=== PATIENT | male | born 1965 | race Caucasian/White ===

== ENCOUNTER 2019-07-03 10:46 | Day surgery (SDC) | payer BC ==
[~2019-07-03 10:46] MED LIST: Lactated Ringers 1,000 ML IV SCH; Propofol 200 MG/20 ML SDV ONE; Sodium Chloride 0.9% 10 ML Syringe FLUSH PRN
--- NOTE | 2019-07-03 11:28 | PCM.HPR ---
H & P Addendum review - H & P Addendum Review Date of Original H & P: 06/23/19 Date Reviewed: 07/03/19 Time Reviewed: 11:28 Patient was Examined: No Changes
[2019-07-03] MEDS ORDERED: Propofol 200 MG/20 ML SDV ONE (11:31)
--- NOTE | 2019-07-03 11:50 | PCM.OPNOTE ---
- General Post-Op/Procedure Note Date of Surgery/Procedure: 07/03/19 Operative Procedure(s): Colonoscopy Findings: Normal Pre Op Diagnosis: Screening Post-Op Diagnosis: Same Anesthesia Technique: MAC Primary Surgeon: Pk Hunt Complications: None Condition: Good
[2019-07-03 13:16] VITALS: BP 143/98; PULSE 77
--- NOTE | 2019-07-03 13:55 | OR ---
Date of Procedure: 07/03/2019 PREOPERATIVE DIAGNOSIS: Colon screening. POSTOPERATIVE DIAGNOSIS: Normal colonoscopy. PROCEDURE: Colonoscopy. ANESTHESIA: IV sedation. DESCRIPTION OF PROCEDURE: The patient was brought to the procedure room where he was placed on his left side and IV sedation administered. Digital rectal exam was performed which was normal. Colonoscope was inserted and advanced to the level of the cecum without difficulty. Cecal position was confirmed by identifying the appendiceal lumen and ileocecal valve. Prep was good and surfaces were well visualized. Upon withdrawing the scope, the ascending, transverse, and descending colon were normal in appearance. Sigmoid colon and rectum were normal. Retroflexion was normal. Air was removed and the scope withdrawn. The patient tolerated the procedure well and returned to Recovery in stable condition. Recommend routine colon screening again in 10 years. MICHELLE MCKEON MD /[id number]
== END 2019-07-03 12:35 | disposition home or self-care (01) ==
LOC: LL.SDS 10:46
PROVIDERS: ATTEND Surgery
DX: Z12.11 Encounter for screening for malignant neoplasm of colon (principal); I10 Essential (primary) hypertension; K21.9 Gastro-esophageal reflux disease without esophagitis; Z79.899 Other long term (current) drug therapy
CPT/HCPCS: J2704; J7120

== ENCOUNTER 2020-12-02 14:33 | Emergency (ER) | payer BC, OTHER ==
[2020-12-02] MEDS ORDERED: Diphtheria,Pertussis(Acell),Tetanus Vaccine 0.5 ML Syringe IM ONE (14:39)
[2020-12-02 15:12] VITALS: BP 150/80; PULSE 64
[2020-12-02] MEDS ORDERED: Bacitracin Oint 1 GM U/D Packet TOP ONE (15:19)
--- NOTE | 2020-12-02 15:22 | EDM.PDOC ---
ED HPI GENERAL MEDICAL PROBLEM - General Chief Complaint: Laceration Stated Complaint: laceration Time Seen by Provider: 12/02/20 14:39 Source of Information: Reports: Patient History Limitations: Reports: No Limitations - History of Present Illness INITIAL COMMENTS - FREE TEXT/NARRATIVE: Patient comes emergency department today from work at [employer] where he had an injury to his left fifth finger just prior to arrival. Approximately 1400 hrs. today the patient was at work when he was moving a heavy piece of metal casting material that shifted and fell landing on his left fifth finger. This happened just prior to arrival. He sustained a laceration and crush injury to the left distal fifth finger. He denies any paresthesias. He is unsure when his last tetanus shot was. He only complains of an injury to the left fifth finger. No Covid exposure no Covid symptoms. - Related Data Allergies Allergy/AdvReac Type Severity Reaction Status Date / Time No Known Allergies Allergy Verified 12/02/20 14:40 Home Meds: Home Meds Lisinopril 20 mg PO DAILY 04/16/16 [History] Omeprazole 20 mg PO DAILY 04/16/16 [History] LORazepam 0.5 mg PO TID PRN 07/03/19 [History] Rosuvastatin Calcium 1 tab PO DAILY 07/03/19 [History] Sertraline HCl 25 mg PO ASDIRECTED 07/03/19 [History] Ubidecarenone [COQ-10] 30 mg PO DAILY 12/02/20 [History] Past Medical History HEENT History: Reports: Impaired Vision Other HEENT History: wears glasses Cardiovascular History: Reports: High Cholesterol, Hypertension Gastrointestinal History: Reports: GERD Other Gastrointestinal History: BARRETTS ESOPHAGUS Psychiatric History: Reports: Anxiety, Depression - Infectious Disease History Infectious Disease History: Reports: Chicken Pox - Past Surgical History GI Surgical History: Reports: Colonoscopy, EGD, Hernia Repair/Other Social & Family History - Caffeine Use Caffeine Use: Reports: Coffee, Soda ED ROS GENERAL - Review of Systems Review Of Systems: Comprehensive ROS is negative, except as noted in HPI. ED EXAM, SKIN/RASH Exam: See Below Exam Limited By: No Limitations General Appearance: Alert, WD/WN, No Apparent Distress Respiratory/Chest: No Respiratory Distress Cardiovascular: Normal Peripheral Pulses, Regular Rate, Rhythm Extremities: Other (REst of the left hand is atraumatic. ). No: Normal Inspection (Exam is isolated to the left hand. On the distal lateral aspect of the fifth finger there is a 2 cm distal to proximal laceration that does not extend into the DIP joint. He is able to flex and extend at the DIP PIP and MCP joints appropriately. CMS is intact appropriately. ) Neurological: Alert, Oriented, CN II-XII Intact, Normal Cognition, No Motor/Sensory Deficits Psychiatric: Normal Affect, Normal Mood Skin: Warm, Dry, Intact, Normal Color, No Rash ED SKIN PROCEDURES - Laceration/Wound Repair Left Lateral Digit - 5th (Baby) Appearance: Subcutaneous, Linear, Clean Distal NVT: Neuro & Vascular Intact, No Tendon Injury Anesthetic Type: Digital Local Anesthesia - Lidocaine (Xylocaine): 1% Plain Local Anesthetic Volume: 5cc Skin Prep: Chlorhexidine (Hibiciens), Providone-Iodine (Betadine) Saline Irrigation (cc's): 500 Exploration/Debridement/Repair: Wound Explored, In a Bloodless Field, Explored to Base, No Foreign Material Found Closed with: Sutures Lac/Wound length In cm: 2 Suture Size: 4-0 Suture Type: Nylon Sterile Dressing Applied: Nurse Tetanus Status Addressed: Yes Complications: No Course - Radiology Interpretation Free Text/Narrative:: X-ray of the left hand initially reviewed extemporaneously by myself. No overt bony deformities. Radiological review to follow - Re-Assessments/Exams Free Text/Narrative Re-Assessment/Exam: 12/02/20 15:50 Wound repair per procedure note. Tetanus updated. Departure - Departure Time of Disposition: 15:21 Disposition: Home, Self-Care 01 Clinical Impression: Crushing injury of finger of left hand Finger laceration Qualifiers: Encounter type: initial encounter Finger: little finger Damage to nail status: without damage Foreign body presence: without foreign body Laterality: left Qualified Code(s): S61.217A - Laceration without foreign body of left little finger without damage to nail, initial encounter - Discharge Information *PRESCRIPTION DRUG MONITORING PROGRAM REVIEWED*: Not Applicable *COPY OF PRESCRIPTION DRUG MONITORING REPORT IN PATIENT LASHELL: Not Applicable Instructions: Laceration Care, Adult, [id number], Pain Medicine Instructions, [id number] Referrals: Vanda Balderrama [employer]IST [Primary Care Provider] - Additional Instructions: Tylenol and or Ibuprofen as needed for pain. Ice to the sore area as well. Wash wound twice daily with soap and water. Bacitracin and bandage until healed. Running water over the finger is okay no soaking in water. Watch for signs of infection. Sutures out in 10 days. Return to the ED if new or worsening symptoms Follow up in the clinic in 10 days for sutures out or if any concerns.
== END 2020-12-02 15:25 | disposition home or self-care (01) ==
LOC: LL.ED 14:33
DX: S67.197A Crushing injury of left little finger, initial encounter (principal); S61.217A Laceration without foreign body of left little finger without damage to nail, initial encounter; E78.00 Pure hypercholesterolemia, unspecified; I10 Essential (primary) hypertension; K21.9 Gastro-esophageal reflux disease without esophagitis; Z23 Encounter for immunization; Z79.899 Other long term (current) drug therapy; W20.8XXA Other cause of strike by thrown, projected or falling object, initial encounter; Y92.89 Other specified places as the place of occurrence of the external cause; Y99.0 Civilian activity done for income or pay
CPT/HCPCS: 12001; 73140-F4; 90471; 90715; 99283-25

== ENCOUNTER 2023-02-15 07:47 | Day surgery (SDC) | payer BC ==
[~2023-02-15 07:47] MED LIST changes: -Lactated Ringers 1,000 ML IV SCH; -Sodium Chloride 0.9% 10 ML Syringe FLUSH PRN
[2023-02-15] MEDS ORDERED: Lactated Ringers 1,000 ML IV SCH (08:00)
[2023-02-15] MEDS ORDERED: Sodium Chloride 0.9% 10 ML Syringe FLUSH PRN (08:00)
[2023-02-15] MEDS ORDERED: Lidocaine 2% 5 ML SDV ONE (09:30)
[2023-02-15] MEDS ORDERED: Propofol 200 MG/20 ML SDV ONE (09:54)
[2023-02-15 10:10] VITALS: BP 108/67; PULSE 70
== END 2023-02-15 11:00 | disposition home or self-care (01) ==
LOC: LL.SDS 07:47
PROVIDERS: ATTEND Surgery
DX: K21.00 Gastro-esophageal reflux disease with esophagitis, without bleeding (principal); I10 Essential (primary) hypertension; E78.5 Hyperlipidemia, unspecified; F32.A Depression, unspecified; Z87.19 Personal history of other diseases of the digestive system; Z79.899 Other long term (current) drug therapy
CPT/HCPCS: 00731; J2704; J3490; J7120

== ENCOUNTER 2025-02-23 14:16 | Emergency (ER) | payer BC ==
[2025-02-23] MEDS ORDERED: Sodium Chloride 0.9% 10 ML Syringe FLUSH PRN (14:21)
[2025-02-23 14:30] LABS: BASOPHILS ABSOLUTE AUTO 0.02 K/uL (0.00-0.20); BASOPHILS PERCENT AUTO 0.3 % (0.0-2.0); EOSINOPHILS ABSOLUTE AUTO 0.06 K/uL (0.00-0.50); EOSINOPHILS PERCENT AUTO 0.8 % (0.0-5.0); HEMOGLOBIN 15.7 g/dL (13.1-16.8); IMMATURE GRAN ABSOLUTE AUTO 0.01 10^3/uL (0.00-0.04); IMMATURE GRAN PERCENT AUTO 0.1 % (0.0-0.4); LYMPHOCYTES ABSOLUTE AUTO 1.88 K/uL (0.50-3.50); LYMPHOCYTES PERCENT AUTO 25.6 % (10.0-50.0); MEAN CORPUSCULAR HEMOGLOBIN 33.3 pg (28.2-33.3); MEAN CORPUSCULAR HGB CONC 37.4 g/dL (31.7-36.0); MONOCYTES ABSOLUTE AUTO 0.73 K/uL (0.00-1.00); MONOCYTES PERCENT AUTO 9.9 % (2.0-14.0); NEUTROPHILS ABSOLUTE AUTO 4.64 K/uL (1.40-7.00); NEUTROPHILS PERCENT AUTO 63.3 % (45.0-80.0); PLATELET COUNT,PLT 210 K/uL (150-350); RED BLOOD CELL COUNT 4.72 M/uL (4.33-5.41); WHITE BLOOD CELL COUNT,WBC 7.3 K/uL (4.0-10.2)
[2025-02-23 14:47] VITALS: PULSE 104
[2025-02-23 14:51] LABS: ALBUMIN 4.1 g/dL (3.4-5.0); ANION GAP 15.9 meq/L (7-15); BILIRUBIN TOTAL 0.7 mg/dL (0.2-1.0); CALCIUM 10.5 mg/dL (8.5-10.1); CREATININE 1.02 mg/dL (0.51-1.17); EST CRCL DRUG DOSING (CG) 63.68 mL/min; POTASSIUM,K 3.9 mmol/L (3.5-5.1); PROTEIN TOTAL,TP 7.6 g/dL (6.4-8.2)
[2025-02-23 14:54] LABS: PROTHROMBIN TIME 9.9 SEC (9.0-11.1)
[2025-02-23 15:15] VITALS: BP 117/88
== END 2025-02-23 16:10 | disposition home or self-care (01) ==
LOC: LL.ED 14:16
DX: K92.2 Gastrointestinal hemorrhage, unspecified (principal); I10 Essential (primary) hypertension; E78.00 Pure hypercholesterolemia, unspecified; K21.9 Gastro-esophageal reflux disease without esophagitis; Z79.899 Other long term (current) drug therapy
CPT/HCPCS: 36415; 71046; 80053; 82272; 85025; 85610; 93005; 93010; 99284; 99285

== ENCOUNTER 2025-02-26 11:06 | Day surgery (SDC) | payer BC ==
[~2025-02-26 11:06] MED LIST changes: -Propofol 200 MG/20 ML SDV ONE; +Sodium Chloride 0.9% 10 ML Syringe FLUSH PRN
[2025-02-26] MEDS ORDERED: Midazolam 1 MG/ML 2 ML SDV ONE (11:08)
[2025-02-26] MEDS ORDERED: Propofol 200 MG/20 ML SDV ONE ×2 (11:08→12:48)
[2025-02-26] MEDS: Lactated Ringers 1,000 ML IV SCH (11:23)
[2025-02-26] MEDS ORDERED: Glycopyrrolate 0.2 MG/ML SDV IVPUSH ONE (11:54)
[2025-02-26 13:25] VITALS: BP 127/87; PULSE 83
== END 2025-02-26 13:30 | disposition home or self-care (01) ==
LOC: LL.SDS 11:06
PROVIDERS: ATTEND Surgery
DX: K22.70 Barrett's esophagus without dysplasia (principal); K20.90 Esophagitis, unspecified without bleeding; K57.30 Diverticulosis of large intestine without perforation or abscess without bleeding; K92.1 Melena; K44.9 Diaphragmatic hernia without obstruction or gangrene; Z79.899 Other long term (current) drug therapy
CPT/HCPCS: 43239; 45378; J1596; J2250; J2704; J7120